=== PATIENT | female | born 1955 | race Caucasian/White ===

== ENCOUNTER → 2017-03-12 | Outpatient (CLI) | payer MEDICARE ==
[~2017-03-12] MED LIST: ACIPHEX20 MG PO; ALDACTONE25 MG PO; AMARYL4 MG PO; ASPIRIN LO-DOSE81 MG PO; BUMEX1 MG PO; CYMBALTA60 MG PO; DILAUDID 2MG(HYD2 MG PO; FIORICET 50-301 EACH PO; FLONASE 50 MCG/16 GM NOSE; GLUCOPHAGE500 MG PO; K-TAB 10MEQ10 MEQ PO; LIVALO1 MG PO; LOPID600 MG PO; MAGNESIUM400 M1 PO; NITROSTAT0.4 MG SL; OXYGEN M-15 INH; PRINIVIL (ZESTRI5 MG PO; PROTONIX40 MG PO; RESTASIS1 EACH OPHTH; STADOL NS10 MG/ML INH; SYMBICORT 80-10.2 GM INH; TOPROL XL 5050 MG PO; TRAMADOL HCL50 MG PO; VITAMIN D31000 UNI1 PO; XARELTO20 MG PO
== END | disposition disaster alternative care site (69) ==
LOC: GRAD 12:08
DX: E08.65 Diabetes mellitus due to underlying condition with hyperglycemia (principal); R10.9 Unspecified abdominal pain; R74.8 Abnormal levels of other serum enzymes; R11.0 Nausea; Z90.49 Acquired absence of other specified parts of digestive tract

== ENCOUNTER → 2017-04-11 | Outpatient (CLI) | payer MEDICARE | END | disposition disaster alternative care site (69) | LOC: GRAD 04-03 14:00 | DX: M54.5 Low back pain (principal); M47.896 Other spondylosis, lumbar region ==

== ENCOUNTER → 2017-04-24 | Outpatient (CLI) | payer MEDICARE ==
[2017-04-24 13:58] LABS: INR - (THERAPEUTIC) 1.18 (0.92-1.07); PROTIME 12.4 SECONDS (9.8-11.4)
== END ==
LOC: LGSMG 13:48
PROVIDERS: Internal Medicine
DX: Z01.818 Encounter for other preprocedural examination (principal)

== ENCOUNTER → 2017-05-01 | Outpatient (CLI) | payer MEDICARE ==
[2017-05-01 17:23] LABS: ANION GAP 12.2 (10.0-19.0); CALCIUM 8.6 mg/dL (8.5-10.5); CREATININE 0.8 mg/dL (0.5-1.1); POTASSIUM 4.2 mMol/L (3.7-5.1)
== END ==
LOC: LNHI 16:56
PROVIDERS: Internal Medicine Interventional Cardiology
DX: I25.10 Atherosclerotic heart disease of native coronary artery without angina pectoris (principal); I48.0 Paroxysmal atrial fibrillation

== ENCOUNTER → 2017-05-01 | Outpatient (CLI) | payer MEDICARE ==
--- NOTE | ~2017-05-01 | ESTC ---
Cardiac Perfusion Imaging Demographics Patient Name FORREST Dobbs Gender Female Patient Number [id number] Race Visit Number [id number] [place] [id number] Room Number Accession Number [id number] Height 62 inches Date of 1955 Weight 159 pounds Interpreting Physician María Elena Date of study 05/01/2017 Jessica Supervising /PJ HART Technologist Kenzie Lopez Ordering Physician Stress lead quality technician Stress ECG Reading María Elena Serrano Physician Jessica Miranda RN Procedure Procedure Type: Nuclear Stress Test:Pharmacological, Lexiscan, Cardiolite Stress Test Procedure Start time: 05/01/2017 09:30 Indications: Pre surgical clearance. Risk Factors The patient risk factors include:prior PCI on 09/16/2009;treated hypercholesterolemia, orally-treated diabetes mellitus, chronic lung disease and dyslipidemia. Conclusions Summary Perfusion Images: The overall quality of the study is good. Left ventricular cavity is noted to be normal on the stress and rest studies. There is no evidence of abnormal lung activity. The right ventricle is not visualized and cannot be assessed. Stress SPECT images and Rest SPECT images demonstrate homogenous tracer distribution throughout the myocardium except for mild decrease uptake in the area involving the anterior wall and basal lateral wall on rest images is consistent with soft tissue attenuation. Gated SPECT imaging reveals normal myocardial thickening and wall motion. The left ventricular ejection fraction was calculated to be >70%. Impression ECG portion of stress test is clinically negative for ischemia by diagnostic criteria. Myocardial perfusion imaging is normal. The mild anterior wall and basal lateral defect noted only on rest images with preserved wall motion is consistent with soft tissue attenuation. Overall left ventricular systolic function was normal without regional wall motion abnormalities. Stress Protocols Resting ECG Sinus rhythm Pre-stress physical exam: Patient assessed by Dr Chao prior to testing. Predicted HR: 161 bpm ECG Findings No ECG changes suggestive of ischemia. Arrhythmias No rhythm abnormality. Symptoms Shortness of breath. Palpitations Stress Interpretation Appropriate hemodynamic response to Lexiscan. No significant ST-T wave changes with Lexiscan. ECG portion is negative for ischemia by diagnostic criteria. Imaging Results Applied corrections - Motion correction applied High risk findings Summed scores - Summed stress score: 2 - Summed rest score: 10 - Summed difference score: -8 Stress ejection Ejection fraction:83 % EDV :70 ml ESV :12 ml Stroke volume :58 ml LV mass :116 gr Imaging Protocols Rest Stress Isotope:Tc99m Sestamibi IV Isotope: Tc99m Sestamibi IV Isotope dose:11.3 mCi Isotope dose:34.7 mCi Date:05/01/2017 07:20 Date:05/01/2017 09:54 Technique: SPECT Technique: Gated Supine SPECT Supine Scan Time:45-60 minutes post Scan Time:45-60 minutes post injection injection Procedure Medications - Regadenoson (Lexiscan) 0.4 mg IV over 10-15 sec. I.V. 0.4 mg. Medical History Admission Data Admission date: 05/01/2017 Admission Time: 07:06 Hospital Status: Outpatient. Signatures dtt: JESSICA CHAO dtd: 05/01/17 0930 Physician Self Edit
== END | disposition disaster alternative care site (69) ==
LOC: GRAD 07:06
DX: Z01.810 Encounter for preprocedural cardiovascular examination (principal); E78.00 Pure hypercholesterolemia, unspecified; E11.9 Type 2 diabetes mellitus without complications; E78.5 Hyperlipidemia, unspecified; J98.4 Other disorders of lung
CPT/HCPCS: A9500; J2785

== ENCOUNTER → 2017-05-06 | Outpatient (CLI) | payer MEDICARE | LOC: LGSMG 11:46 | DX: R05 Cough (principal) ==